=== PATIENT | male | born 1985 | race Caucasian/White ===

== ENCOUNTER 2023-02-11 20:20 | Emergency (ER) | payer BC ==
[~2023-02-11] VITALS: Ht 154.9 cm; Wt 85.3 kg
[2023-02-11] MEDS ORDERED: CEPHALEXIN500 M1 PO (21:46)
== END 2023-02-11 22:00 | disposition home or self-care (01) ==
LOC: ED 20:20
DX: M19.041 Primary osteoarthritis, right hand (principal); Z88.8 Allergy status to other drugs, medicaments and biological substances